=== PATIENT | female | born 1995 | race Caucasian/White ===

== ENCOUNTER 2019-03-30 10:01 | Outpatient (CLI) | payer OTHER, SELFPAY ==
[2019-03-30 10:31] VITALS: BP 142/83; PULSE 73
[2019-03-30 10:46] VITALS: BP 148/81; PULSE 71
[2019-03-30 11:01] VITALS: BP 152/80; PULSE 75
[2019-03-30 11:05] VITALS: PULSE 73
[2019-03-30] MEDS: LABETALOL HCL 100 MG TABLET 300 MG PO (11:05)
[2019-03-30 11:16] VITALS: BP 134/75; PULSE 68
[2019-03-30 11:31] VITALS: BP 141/85; PULSE 68
--- NOTE | 2019-03-30 12:15 | PC.NURSE ---
1140 Dr Izquierdo updated on BP's ok to dc home.
== END 2019-03-30 11:50 | disposition home or self-care (01) ==
LOC: ANHOBOP 10:04 → ANHOBPP 05-18 10:23
PROVIDERS: Visit Provider Obstetrics & Gynecology
DX: Z34.90 Encounter for supervision of normal pregnancy, unspecified, unspecified trimester (principal); Z3A.00 Weeks of gestation of pregnancy not specified
CPT/HCPCS: 99199; A9270

== ENCOUNTER 2019-04-03 09:48 | Outpatient (CLI) | payer OTHER, SELFPAY ==
[2019-04-03 10:15] VITALS: BP 172/99; PULSE 69
[2019-04-03 10:53] VITALS: BP 155/92; PULSE 63
== END 2019-04-03 11:15 | disposition home or self-care (01) ==
LOC: ANHOBOP 09:51
PROVIDERS: Visit Provider Obstetrics & Gynecology Gynecology
DX: O16.5 Unspecified maternal hypertension, complicating the puerperium (principal)
CPT/HCPCS: 99199

== ENCOUNTER 2021-06-22 15:08 | Outpatient (CLI) | payer BC, SELFPAY ==
--- NOTE | ~2021-06-22 | XR_ITS ---
XR ankle LT min 3V, XR foot LT min 3V 06/22/2021 15:32 INDICATION: Left ankle and foot pain PROCEDURE: 4 views left ankle and 4 views left foot COMPARISON: No prior studies for comparison. FINDINGS: Fracture, dislocation or subluxation is not identified. Lisfranc joint is intact. The soft tissues appear within normal limits. No foreign bodies are identified. IMPRESSION: 1: NO ACUTE BONE OR JOINT ABNORMALITY IDENTIFIED. Reviewed, dictated and finalized at location B. IMPRESSION: 1: NO ACUTE BONE OR JOINT ABNORMALITY IDENTIFIED.
== END 2021-06-22 15:09 ==
LOC: MICIMG 15:12
PROVIDERS: PCP Nurse Practitioner; Visit Provider Nurse Practitioner
DX: M79.672 Pain in left foot (principal)
CPT/HCPCS: 73610; 73630

== ENCOUNTER 2021-09-14 15:27 | Outpatient (RCR) | payer BC, SELFPAY ==
[2021-09-06] MEDS: RHO(D) IMMUNE GLOBULIN 300 MCG/2 ML SYRINGE IM (17:17)
== END 2021-12-04 23:59 | disposition home or self-care (01) ==
LOC: ANHLAB 15:27
PROVIDERS: PCP Nurse Practitioner; Visit Provider Obstetrics & Gynecology Gynecology
DX: O26.851 Spotting complicating pregnancy, first trimester (principal); Z29.13 Encounter for prophylactic Rho(D) immune globulin; O36.0110 Maternal care for anti-D [Rh] antibodies, first trimester, not applicable or unspecified; Z3A.00 Weeks of gestation of pregnancy not specified
CPT/HCPCS: 36415; 84702; 85461; 90384; 96372; J2790

== ENCOUNTER 2021-10-13 14:43 | Outpatient (RCR) | payer BC, SELFPAY ==
[2021-09-14 16:53] LABS: Beta HCG Quantitative 196.72 mIU/ML
[2021-09-25 16:10] LABS: Beta HCG Quantitative 53.12 mIU/ML
[2021-10-13 16:43] LABS: Beta HCG Quantitative < 2.39 mIU/ML
== END 2021-12-13 23:59 | disposition home or self-care (01) ==
LOC: ANHLAB 14:43
PROVIDERS: PCP Nurse Practitioner; Visit Provider Obstetrics & Gynecology Gynecology
DX: O03.9 Complete or unspecified spontaneous abortion without complication (principal)
CPT/HCPCS: 36415; 84702

== ENCOUNTER 2022-06-30 12:40 | Outpatient (RCR) | payer BC, SELFPAY ==
[2022-06-29 12:06] LABS: Basophils Absolute Auto 0.1 K/mm3 (0.0-0.1); Basophils Percent Auto 0.6 % (0.2-1.2); Eosinophils Absolute Auto 0.2 K/mm3 (0-0.3); Eosinophils Percent Auto 1.8 % (0-4.4); Hematocrit 36.8 % (37.0-47.0); Hemoglobin 12.5 g/dL (12.0-15.0); Immature Granulocyte Absolute 0.04 K/mm3 (0.00-0.031); Immature Granulocyte Percent A 0.5 % (0-0.5); Lymphocytes Absolute Auto 1.64 K/mm3 (0.9-3.2); Lymphocytes Percent Auto 19.9 % (18.3-44.2); Mean Corpuscular Hemoglobin 31.7 pg (26-34); Mean Corpuscular Volume 93.4 fl (80-100); Mean Platelet Volume 10.2 fl (7.4-10.4); Monocytes Absolute Auto 0.6 K/mm3 (0.1-0.6); Monocytes Percent Auto 7.3 % (2.6-8.5); Neutrophils Absolute Auto 5.8 K/mm3 (1.3-6.7); Neutrophils Percent Auto 69.9 % (45.5-73.1); Platelet Count Result 225 k/mm3 (150-375); Red Blood Count 3.94 M/mm3 (4.2-5.4); Red Cell Distribution Width 13.4 % (11.5-14.5); White Blood Count 8.2 K/mm3 (4.5-10.0)
[2022-06-29 12:37] LABS: Glucose 1 Hour PP 50gm Dose 108 mg/dL
[2022-06-29 13:10] LABS: HIV 1/2 Ab P24 Ag Result Negative (Negative)
[2022-06-30] MEDS: RHO(D) IMMUNE GLOBULIN 300 MCG/2 ML SYRINGE IM (10:12)
== END 2022-06-30 13:00 | disposition home or self-care (01) ==
LOC: ANHLAB 12:40
PROVIDERS: PCP Nurse Practitioner; Visit Provider Obstetrics & Gynecology
DX: Z11.4 Encounter for screening for human immunodeficiency virus [HIV] (principal); Z29.13 Encounter for prophylactic Rho(D) immune globulin; O36.0190 Maternal care for anti-D [Rh] antibodies, unspecified trimester, not applicable or unspecified; Z3A.00 Weeks of gestation of pregnancy not specified
CPT/HCPCS: 36415; 82947; 85025; 85461; 86703; 86850; 86900; 86901; 90384; 96372; G0432; J2790

== ENCOUNTER 2022-09-11 15:07 | Inpatient (IN) | payer BC, SELFPAY ==
[2022-09-11] VITALS (90 sets, daily range): BP systolic 143–180; BP diastolic 78–106; PULSE 82–149; TEMP 36.3–37.1; O2SAT 97–100; BMI 37.0
--- NOTE | 2022-09-11 16:30 | PC.NURSE ---
Contractions noted q 3-5 min per [facility].
--- NOTE | 2022-09-11 16:35 | PC.NURSE ---
Called Dr. Abarca with pt status. Tracing reactive, with periods of decreased variability. Regular contractions noted. BPs given. Orders received to admit pt for induction of labor.
--- NOTE | 2022-09-11 16:52 | P.PNAN_ITS ---
Anes - Eval Pre Procedure Procedure: labor epidural Date/Time: 09/11/22 16:52 Pre Op Diagnosis: IOL Patient Data Age: 27 Gender: F Height: Weight: Allergies Allergy/AdvReac Type Severity Reaction Status Date / Time No Known Allergies Allergy Verified 09/11/22 14:04 Home Medications Medication Instructions Recorded Confirmed Type vit no.95-ferrous 1 tablet PO DAILY 02/19/19 09/11/22 History fumarate 28 mg-folic acid 800 mcg tablet () aripiprazole 10 mg tablet (Abilify) 10 mg PO DAILY 02/08/22 09/11/22 History nifedipine 30 mg tablet,extended 30 mg PO DAILY 02/08/22 09/11/22 History release 24 hr (Procardia XL) aspirin 81 mg tablet,delayed 81 mg PO DAILY 05/29/22 09/11/22 History release (Adult Low Dose Aspirin) acyclovir 400 mg tablet 400 mg PO BID #30 tabs 09/05/22 09/11/22 Rx Patient hx anesthesia problems: none Family hx anesthesia problems: none Results Review: All pre-operative results and documents have been reviewed as part of the pre- operative evaluation. [facility] Past Medical History Medical History Abscess Abscess, perineum Anxiety Depression Hypertension Suppression of menses Surgical History Surgical History [place] teeth extracted Family History Family History Mother Diabetes mellitus Hypertension Sibling Hypertension Kidney problem Father Hypertension Grandparent Acute myocardial infarction Grandparent Breast cancer Social History Social History Smoking status: Never smoker Second hand tobacco smoke exposure: No Alcohol intake: never Substance use: never Substance use type: does not use Lack of Transportation: No Lack of Food: Never True Current Housing: I Have Housing Concerned About Future Housing: No Difficulty Paying Gas/Electric Bills: No Difficulty Paying for Meds: No Currently Unemployed: No Education: High School Diploma/GED Difficulty w/ Childcare or Family Care: No Living arrangements: other Additional living arrangements comments: Occupation/Education: occupation Additional occupation/education comments: dental admin Gender identity (if verbalized by the patient): Female Sexual Orientation (if Verbalized by the Patient): Straight or Heterosexual Spiritual care concerns: No Exam Day of Procedure 09/11/22 16:52 Patient weight: obese Heart: regular rate and rhythm Lungs: clear to auscultation Airway: Mallampati scale Neurological: alert and oriented
--- NOTE | 2022-09-11 17:06 | LDADM ---
This patient, Brock White, was admitted to Labor/Delivery/Recovery 103 on 09/11/22 at 15:07. Plans for labor, pain management and were discussed with patient. Patient/family oriented to hospital policies and general routines including ID bracelet, bed and alarms, visiting hours, pain management, procedures, bathroom and other care routines, personal items, smoking policy, room service/diet and guest tray routines, infant security routines, and visiting hours. Patient/Family are encouraged to report perceived risks to care and to ask questions if they do not understand what they are told or what they should do. See OBIX for further documentation.
[2022-09-11] MEDS: LACTATED RINGERS 1,000 ML 125 ML IV CONT (17:25)
[2022-09-11] MEDS: OXYTOCIN 30 UNITS/NS 500 ML 30 UNITS/500 ML BAG IV CONT (17:26)
[2022-09-11 17:35] LABS: Basophils Percent Auto 0.4 % (0.2-1.2); Eosinophils Absolute Auto 0.1 K/mm3 (0-0.3); Eosinophils Percent Auto 0.6 % (0-4.4); Hematocrit 38.9 % (37.0-47.0); Hemoglobin 13.3 g/dL (12.0-15.0); Immature Granulocyte Absolute 0.08 K/mm3 (0.00-0.031); Immature Granulocyte Percent A 0.8 % (0-0.5); Lymphocytes Absolute Auto 2.25 K/mm3 (0.9-3.2); Lymphocytes Percent Auto 23.1 % (18.3-44.2); Mean Corpuscular HGB Conc 34.2 g/dl (32-36); Mean Corpuscular Hemoglobin 31.6 pg (26-34); Mean Corpuscular Volume 92.4 fl (80-100); Mean Platelet Volume 10.3 fl (7.4-10.4); Monocytes Absolute Auto 0.6 K/mm3 (0.1-0.6); Monocytes Percent Auto 6.4 % (2.6-8.5); Neutrophils Absolute Auto 6.7 K/mm3 (1.3-6.7); Neutrophils Percent Auto 68.7 % (45.5-73.1); Platelet Count Result 230 k/mm3 (150-375); Red Blood Count 4.21 M/mm3 (4.2-5.4); Red Cell Distribution Width 13.5 % (11.5-14.5); White Blood Count 9.7 K/mm3 (4.5-10.0)
[2022-09-11 17:47] LABS: Alanine Aminotransferase 19 U/L (6-35); Albumin Level 3.8 g/dL (3.5-5.1); Alkaline Phosphatase 86 U/L (38-126); Anion Gap 4 mmol/L (8-16); Aspartate Amino Transferase 29 U/L (14-36); Bilirubin,Total 0.5 mg/dL (0.2-1.3); Blood Urea Nitrogen 7 mg/dL (7-17); Calcium 8.9 mg/dL (8.4-10.2); Carbon Dioxide 27 mmol/L (22-30); Chloride 106 mmol/L (98-107); Estimated CRCL calculation 179 ml/min; Estimated Glomerular Filt Rate > 60; Glucose 88 mg/dL (65-110); Sodium 137 mmol/L (137-145); Uric Acid 3.5 mg/dL (2.5-7.5)
[2022-09-11] MEDS: LACTATED RINGERS 1,000 ML 999 ML IV CONT (17:48)
[2022-09-11] MEDS: OXYTOCIN 30 UNITS/NS 500 ML 30 UNITS/500 ML BAG 999 UNITS IV CONT (23:36)
--- NOTE | 2022-09-11 23:57 | WPDHPUPDATE1 ---
History and Physical Update Update Date/Time: 09/11/22 23:57 History and Physical has been reviewed, including an updated exam of the patient. There are NO changes in the patient's condition. Risks, benefits, and alternatives have been discussed and questions answered. Patient agrees to proceed with procedure.
--- NOTE | 2022-09-11 23:57 | WPDOBADMIT ---
Obstetrics - Admit Note Admission Note: record reviewed. No pertinent additions to the history and/or any subsequent changes in the physical findings that are not consistent with the expected course of the were found. Additions to the history and/or subsequent changes in the physical findings follow. None.
[2022-09-12] VITALS (16 sets, daily range): BP systolic 139–158; BP diastolic 77–103; PULSE 89–123; RESP 18–20; TEMP 36.6–37.1; O2SAT 99–100
[2022-09-12] MEDS: OXYTOCIN 30 UNITS/NS 500 ML 30 UNITS/500 ML BAG 125 UNITS IV CONT
--- NOTE | 2022-09-12 | PM.OBPRVD ---
OB - Delivery Note Procedure Events: Chronic Hypertension Induction method: AROM Delivery augmentation: Pitocin Delivery monitor: External FHT and External Uterine Route of delivery: Episiotomy description: None Laceration Description: Perineal - 3rd Degree Delivery repair: vicryl and chromic Specimen: No Quantitative Blood Loss (ml): 300 Anesthesia type: Epidural Disposition: Floor Complications: none Narrative: Draped usual manner this procedure. Maternal expulsive efforts delivered vertex over intact perineum. nuchal cord was noted and reduced, and the rest of baby delivered. Cord clamped cut and placenta delivered spontaneously. Uterus was well contracted with minimal bleeding. Evaluation revealed third-degree laceration. Using 0 Vicryl the rectal capsule sphincter bilaterally approximated without difficulty. Vaginal mucosa then approximated using 2-0 chromic the deep tissue approximated using 2-0 chromic as subcuticularly with good approximation noted. Uterus was well contracted with minimal bleeding. There was no bleeding from the laceration site at this point the procedure was considered terminated. Immediate postoperative condition of mother and baby were both excellent. Baby Weeks of gestation at delivery: 39 gender: Male presentation: vertex position: Right Occiput Anterior Placenta delivery description: Spontaneous Cord Vessel Description: 3 Vessels, Nuchal Cord and Reduced AMG Delivery Billing Delivery Delivery: Delivery Charge
[2022-09-12] MEDS: LACTATED RINGERS 1,000 ML 999 ML IV CONT (00:42)
--- NOTE | 2022-09-12 02:30 | PC.NURSE ---
Patient transferred to post room #281 via wheelchair. Support person present. Oriented to unit, room, information board, rooming in, admission packet and security measures. Patient verbalizes understanding.
[2022-09-12] MEDS: MULTIVIT/MIN/PREN/FOL AC/IRON TABLET 1 TAB PO (09:00)
[2022-09-12] MEDS: IBUPROFEN 600 MG TABLET PO ×3 (09:00→20:54)
[2022-09-12] MEDS: BENZOCAINE 20% AER SPR (*SP) 56 GM CAN 1 SPRAY TOPICAL (09:00)
[2022-09-12] MEDS: DOCUSATE SODIUM 100 MG CAPSULE PO (09:00)
--- NOTE | 2022-09-12 13:10 | WPDANLDPN2 ---
Anes-Prog Note L&D Date/Time: 09/12/22 13:10 Comfortable throughout: labor and delivery Neuraxial method: epidural Epidural/Spinal procedure site: clean & non-tender Neuro status: Neuro function grossly intact. Cardiovascular status: normal Respiratory status: normal Airway patency: baseline Mental status: baseline Post-Op hydration status: normal Vital Signs: Last Vital Signs Temp 36.8 C 09/12/22 12:06 Pulse 99 09/12/22 12:06 Resp 18 09/12/22 12:06 BP 155/95 H 09/12/22 12:06 Pulse Ox 100 09/12/22 12:06 O2 Del Method Room Air 09/12/22 09:00 Pain score (VAS): 2/10 I/O: Intake & Output 09/11/22 09/12/22 09/12/22 23:59 07:59 15:59 Intake Total 1000 1000 120 Output Total 50 Balance 1000 950 120 Post-procedural complaints: none Patient feedback: Patient satisfied with anesthetic care.
--- NOTE | 2022-09-12 13:42 | PC.NURSE ---
[phone] Introductions were made, then consulted with patient to assess needs related to . Mother led the conversation with her?plans to feed?her infant with and the?experience so far having used a nipple shield for the first 3 feedings. Resources provided for inpatient and outpatient services with the feeding sheet, mom/baby guide and name written on the white board. Mother voiced understanding of information and will call if there is a request for assistance. Reported to the primary RN. [phone] Mother requested assistance with . Upon entering the room mother had been attempting to breastfeed to the right breast using cross cradle positioning. Mother works well with her with encouragement and education. Encouraged understanding of the benefits of skin to skin (demonstrating unwrapping infant and placing upright on her chest), stimulating with massage touch, changing positions to encourage wakefulness, how to watch for early feeding cues, responsive feeding, feeding on demand (aiming for 8-12 times in 24 hours, about every 2-3 hours), milk production, building/maintaining a milk supply, duration of feeding, signs of adequate intake/output and how to record on the feeding sheet. Reviewed positioning and ear, shoulder, hip alignment, supporting the breast to facilitate a deep latch, asymmetrical latch (off-center), leading with the chin with a big, open, wide gape and body close to mother. latched optimally to the left breast in football position supporting the latch with a teacup hold. Education given to mother of how to visualize suck/swallow ratios and listen for drinking at the breast. was able to maintain latch without discomfort to mother for over 10 minutes. Nipple care reviewed with optimal latch and good positioning. Reviewed good handwashing when or touching the breast/nipples to prevent infection. Mother plans to breastfeed her without pain and is encouraged to call for assistance latching to the other breast to offer more swallows. Mother has company waiting and was encouraged to have them wait for to breastfeed if feeding cues are visualized. Resources used to facilitate learning were used with the tool, mom and baby guide. Mother voiced understanding of skin to skin, stimulating with massage touch, responsive feedings, to encourage on demand or if it has been 2 -2.5 hours since the start of the last , to call if does not latch, or if there is discomfort with . Reported to primary RN.
[2022-09-12] MEDS: SENNA/DOCUSATE SODIUM TABLET 2 TAB PO (20:54)
[2022-09-12] MEDS: RHO(D) IMMUNE GLOBULIN 300 MCG/2 ML SYRINGE IM (21:00)
[2022-09-13 04:30] VITALS: BP 141/90; PULSE 73; RESP 18; O2SAT 99
[2022-09-13] MEDS: IBUPROFEN 600 MG TABLET PO (04:34)
[2022-09-13] MEDS: DOCUSATE SODIUM 100 MG CAPSULE PO (08:11)
[2022-09-13] MEDS: MULTIVIT/MIN/PREN/FOL AC/IRON TABLET 1 TAB PO (08:11)
[2022-09-13 08:45] VITALS: BP 120/57; PULSE 90; RESP 18; TEMP 37.1; O2SAT 100
[2022-09-13 10:04] LABS: Rapid Plasma Reagin Non-Reactive (NonReactive)
--- NOTE | 2022-09-13 10:38 | PM.OBDSVD ---
DS: Admitting Diagnosis Discharge Date 09/13/2022 Admitting Diagnosis DS: Discharge Diagnosis Discharge Diagnosis (1) , delivered: Code(s): O80 - Encounter for full-term uncomplicated delivery Status: Acute OB - DS: Summary OB Procedures : None OB Procedures Intrapartum: Spontaneous Vag Delivery OB Procedures: : None Time Spent with Patient Time attestation: Total time spent providing and/or coordinating discharge services: DS: Data Data Completed and Pending Labs on day of discharge: Labs from last 24 hours 09/12/22 09/11/22 05:07 17:22 RPR Non-reactive Blood Type A Negative Antibody Screen TNP Screen Negative Baby's Blood Type A pos Baby's CELIO Negative Doses of RhIg Required 1 Discharge Plan Discharge Discharging Clinician: Jose G Abarca Patient Disposition: Home, Self-Care Activity: as tolerated Diet: as tolerated Patient Instructions: Antibiotic Form Stand Alone Forms: General Discharge Information Follow-up/Referrals: Jose G Abarca MD [Physician] - 3 Weeks Discharge Medications: New ibuprofen 600 mg Tablet 600 mg PO Q6H PRN (Reason: Cramping) Qty: 30 0RF Continued aripiprazole [Abilify] 10 mg tablet 10 mg PO DAILY nifedipine [Procardia XL] 30 mg tablet extended release 24hr 30 mg PO DAILY PNV cmb#95-ferrous fumarate-FA [] 28 mg iron- 800 mcg Tablet 1 tablet PO DAILY Discontinued aspirin [Adult Low Dose Aspirin] 81 mg tablet,delayed release (DR/EC) 81 mg PO DAILY acyclovir 400 mg tablet 400 mg PO BID Qty: 30 1RF Date of admission: 09/11/22 15:07 Primary Care Provider: Julius,Mary Jo Frod Admitting Provider: Jose G Abarca Attending physician on admission: Jose G Abarca Condition: Stable
--- NOTE | 2022-09-13 11:22 | PC.NURSE ---
Patient viewed the discharge video Mother & Baby Care, The First Two Weeks . Patient was given the opportunity and encouraged to ask questions. Patient verbalized understanding of information shared and has been given the mother/baby guide for home reference.
--- NOTE | 2022-09-13 11:31 | PC.NURSE ---
[phone] Mother led the conversation with her experience and plan to feed her so far and her ability to feed her infant. Reminded parents to use good handwashing technique to prevent infection. Mother is feeding appropriately for growth of infant and understands stimulating to eat if needed. Infant has had appropriate feedings in the last 24 hours meets the outcomes for weight, output and jaundice at this time. Mother states she is confident to continue feeding her infant at home, when to call for assistance and denies any additional assistance or education at this time. Reinforced understanding of milk production, transition of milk, signs of adequate intake, transition of stool, prevention/relief of engorgement, responsive watching for feeding cues, the different methods of stimulating to breastfeed 2-3 hours after the start of the last feeding, community resources, medication information reviewed per [employer] and when to call a provider using the resource of the mom and baby guide. Mother voiced understanding of the education shared. Reported to the primary RN.
[2022-09-14 15:01] VITALS: BP 160/93; PULSE 82; RESP 18; TEMP 36.8; O2SAT 100
== END 2022-09-13 12:45 | disposition home or self-care (01) | DRG 768 ==
LOC: ANHLDR 16:45 → ANHOB2 09-12 02:44
PROVIDERS: Admitting Provider Obstetrics & Gynecology; PCP Nurse Practitioner; Visit Provider Obstetrics & Gynecology
DX: O10.92 Unspecified pre-existing hypertension complicating childbirth (principal); Z37.0 Single live birth; O70.20 Third degree perineal laceration during delivery, unspecified; O69.1XX0 Labor and delivery complicated by cord around neck, with compression, not applicable or unspecified; Z3A.39 39 weeks gestation of pregnancy
CPT/HCPCS: 36415; 80053; 84550; 85014; 85018; 85025; 85461; 86592; 86850; 86900; 86901; 90384; A9270; J2590; J2790; J2795; J7120